=== PATIENT | female | born 1965 | race Caucasian/White ===

== ENCOUNTER 2017-12-07 09:09 | Emergency (ER) | payer OTHER ==
[~2017-12-07] VITALS: Ht 165.1 cm; Wt 72.6 kg
[~2017-12-07 09:09] MED LIST: BACTRIM DS 8001 TA1 PO; HYDROCODONE BIT1 T11 PO; MEDROL DOSEPAK4 MG PO; MOTRIN800 MG PO; Motrin,Rufen800 MG PO; PEN-VEE K500 MG PO; VICO10300 PO
[2017-12-07 09:13] VITALS: BP 147/91
[2017-12-07] MEDS ORDERED: ALL DAY ALLERGY10 MG PO (09:24)
[2017-12-07] MEDS ORDERED: HYDROXYZINE HCL25 M1 PO (09:24)
== END 2017-12-07 09:33 | disposition home or self-care (01) ==
LOC: ED 09:09
DX: L23.7 Allergic contact dermatitis due to plants, except food (principal); Z98.51 Tubal ligation status; Z90.710 Acquired absence of both cervix and uterus; Z79.899 Other long term (current) drug therapy; Z88.6 Allergy status to analgesic agent; Z88.5 Allergy status to narcotic agent

== ENCOUNTER 2017-12-12 22:20 | Emergency (ER) | payer OTHER ==
[~2017-12-12] VITALS: Ht 165.1 cm; Wt 74.8 kg
[~2017-12-12 22:20] MED LIST changes: +ALL DAY ALLERGY10 MG PO; +HYDROXYZINE HCL25 M1 PO
[2017-12-13] VITALS: BP 122/71
[2017-12-13] MEDS ORDERED: CYCLOBENZAPRINE5 M3 PO (00:12)
== END 2017-12-13 00:20 | disposition home or self-care (01) ==
LOC: ED 22:20
DX: S16.1XXA Strain of muscle, fascia and tendon at neck level, initial encounter (principal); Z88.8 Allergy status to other drugs, medicaments and biological substances; Z79.899 Other long term (current) drug therapy; Z98.51 Tubal ligation status; Z90.710 Acquired absence of both cervix and uterus; Z98.890 Other specified postprocedural states; V49.49XA Driver injured in collision with other motor vehicles in traffic accident, initial encounter; Y93.89 Activity, other specified; Y92.488 Other paved roadways as the place of occurrence of the external cause; Y99.8 Other external cause status

== ENCOUNTER 2019-04-26 12:18 | Emergency (ER) | payer OTHER ==
[~2019-04-26] VITALS: Ht 165.1 cm; Wt 70.3 kg
[~2019-04-26 12:18] MED LIST changes: +CYCLOBENZAPRINE5 M3 PO
[2019-04-26] MEDS ORDERED: PREDNISONE20 M1 PO (12:46)
[2019-04-26 12:48] VITALS: BP 150/90
== END 2019-04-26 12:56 | disposition home or self-care (01) ==
LOC: ED 12:18
DX: L25.9 Unspecified contact dermatitis, unspecified cause (principal); F17.200 Nicotine dependence, unspecified, uncomplicated; Z79.899 Other long term (current) drug therapy; Z88.6 Allergy status to analgesic agent

== ENCOUNTER 2019-05-04 14:08 | Emergency (ER) | payer OTHER ==
[~2019-05-04 14:08] MED LIST changes: +PREDNISONE20 M1 PO
[2019-05-04 14:09] VITALS: BP 151/85
[2019-05-04 14:27] LABS: BILIRUBIN NEGATIVE (NEGATIVE); BLOOD TRACE-LYSED (NEGATIVE); CLARITY SL CLOUDY (CLEAR); COLOR YELLOW (YELLOW); GLUCOSE NEGATIVE (NEGATIVE); KETONE NEGATIVE (NEGATIVE); LEUKO ESTERASE TRACE (NEGATIVE); NITRITE NEGATIVE (NEGATIVE); UROBILINOGEN 0.2 E.U./dl (0.2-1.0)
[2019-05-04 14:46] LABS: BACTERIA 2+; WBC 21-30 wbc/hpf (0-5)
[2019-05-04] MEDS ORDERED: AMINOPHYLLIN200 MG PO (14:55)
[2019-05-04] MEDS ORDERED: DIFLUCAN150 MG PO (14:55)
[2019-05-04] MEDS ORDERED: PYRIDIUM100 MG PO (14:55)
== END 2019-05-04 14:58 | disposition home or self-care (01) ==
LOC: ED 14:08
PROVIDERS: Nurse Practitioner Family
DX: N39.0 Urinary tract infection, site not specified (principal); Z88.6 Allergy status to analgesic agent; Z79.899 Other long term (current) drug therapy; Z90.710 Acquired absence of both cervix and uterus; Z90.49 Acquired absence of other specified parts of digestive tract

== ENCOUNTER → 2019-08-30 | Day surgery (SDC) | payer OTHER ==
[~2019-08-30] VITALS: Ht 165.1 cm; Wt 72.6 kg
[~2019-08-30] MED LIST changes: +AMINOPHYLLIN200 MG PO; +CETIRIZINE HYDR10 MG PO; +DIFLUCAN150 MG PO; +HYDROXYZINE HCL25 MG PO; +PYRIDIUM100 MG PO
[2019-08-30 10:00] VITALS: BP 116/71
[2019-08-30 11:20] VITALS: BP 127/66
[2019-08-30 11:35] VITALS: BP 129/73
[2019-08-30 11:50] VITALS: BP 105/60
== END | disposition home or self-care (01) ==
LOC: SDC 08-27 10:15
DX: Z12.11 Encounter for screening for malignant neoplasm of colon (principal); F17.210 Nicotine dependence, cigarettes, uncomplicated; Z79.899 Other long term (current) drug therapy; Z98.890 Other specified postprocedural states; Z98.51 Tubal ligation status; Z88.8 Allergy status to other drugs, medicaments and biological substances

== ENCOUNTER → 2020-04-09 | Outpatient (CLI) | payer OTHER | END | disposition home or self-care (01) | LOC: US 07:17 | PROVIDERS: ATTEND Nurse Practitioner Primary Care | DX: Z12.31 Encounter for screening mammogram for malignant neoplasm of breast (principal); K76.0 Fatty (change of) liver, not elsewhere classified; R10.11 Right upper quadrant pain; E78.2 Mixed hyperlipidemia; Z90.49 Acquired absence of other specified parts of digestive tract ==

== ENCOUNTER → 2025-03-26 | Outpatient (CLI) | payer OTHER ==
[2025-03-26 11:02] LABS: BASO # 0.0 10*3/uL (0.0-0.1); BASO % 0.4 % (0.0-1.0); EOS # 0.1 10*3/uL (0.0-0.4); EOS % 1.8 % (1.0-4.0); MEAN CELL VOLUME 90.0 fl (81.0-99.0); MEAN CORPUSCULAR HGB 30.3 pg (27.0-31.0); MEAN PLATELET VOLUME 9.7 fl (9.6-12.3); MONO # 0.5 10*3/uL (0.1-1.0); MONO % 8.0 % (3.0-9.0); NEUT # 3.0 10*3/uL (2.3-7.9); NEUT % 53.1 % (47.0-73.0); NUCLEATED RED BLOOD CELL 0.0 % (0.0-0.0); NUCLEATED RED BLOOD CELL 0.0 10*3/uL (0.0-0.0); PLATELET COUNT AUTOMATED 317 10*3/uL (130-400); RED CELL DISTRI WIDTH 13.2 % (0-14.5)
[2025-03-26 11:28] LABS: BUN 10 mg/dl (9-23); FREE T4 1.09 ng/dl (0.89-1.76); LDL CHOLESTEROL 147 mg/dL (9-159); SGPT/ALT 28 U/L (5-49)
[2025-03-26 11:52] LABS: VITAMIN D, 25-HYDROXY 42.4 ng/mL (30-100)
== END | disposition home or self-care (01) ==
LOC: LAB 10:41
PROVIDERS: ATTEND Internal Medicine
DX: K90.0 Celiac disease (principal); E78.2 Mixed hyperlipidemia; E55.9 Vitamin D deficiency, unspecified; E11.9 Type 2 diabetes mellitus without complications; Z68.29 Body mass index [BMI] 29.0-29.9, adult